=== PATIENT | female | born 1965 | race Caucasian/White ===

== ENCOUNTER 2016-09-14 10:39 | Emergency (ER) | payer BC ==
[~2016-09-14] VITALS: Ht 170.2 cm; Wt 92.1 kg
[2016-09-14 11:31] LABS: BASOPHIL % 0.3 % (0-2); PLATELET COUNT 217 x10^3mcL (130-400); RED CELL DISTRIBUTION WIDTH 12.8 % (11.5-14.5)
[2016-09-14 11:56] LABS: CALCIUM 9.6 mg/dL (8.5-10.1); CARBON DIOXIDE 30.8 mmol/L (21-32); CHLORIDE SERUM 102 mmol/L (98-107); GFR1 > 60 mL/min; GLUCOSE SERUM 109 mg/dL (74-106); SODIUM SERUM 140 mmol/L (136-145)
[2016-09-14 12:00] LABS: ALBUMIN 4.1 g/dL (3.4-5.0); ALKALINE PHOSPHATASE 93 U/L (46-116); ALT/SGPT 46 U/L (14-59); AMYLASE 46 U/L (25-115); AST/SGOT 16 U/L (15-37); BILIRUBIN TOTAL 0.2 mg/dL (0.20-1.00); LIPASE 145 IU/L (73-393); TOTAL PROTEIN, SERUM 7.1 g/dL (6.4-8.2)
[2016-09-14 12:04] LABS: UA SPECIFIC GRAVITY 1.025 (1.005-1.035); microscopic required? YES; urine erythrocyte NEGATIVE (NEGATIVE)
[2016-09-14 12:19] LABS: AMPHETAMINE QUAL UR POSITIVE (NEG <=1000)
[2016-09-14 14:46] VITALS: BP 152/87
== END 2016-09-14 14:47 | disposition home or self-care (01) ==
LOC: ED 10:39
PROVIDERS: Emergency Medicine
DX: R10.13 Epigastric pain (principal)
CPT/HCPCS: 80307; 83880; J2405; J3490; J7030

== ENCOUNTER 2017-01-30 14:37 | Emergency (ER) | payer BC ==
[2017-01-30 15:54] VITALS: BP 122/66
== END 2017-01-30 15:54 | disposition home or self-care (01) ==
LOC: ED 14:37
DX: G89.29 Other chronic pain (principal); M54.5 Low back pain; R10.9 Unspecified abdominal pain

== ENCOUNTER 2017-02-22 13:00 | Emergency (ER) | payer BC ==
[~2017-02-22] VITALS: Ht 162.6 cm; Wt 74.4 kg
[2017-02-22 17:02] LABS: CALCIUM 9.5 mg/dL (8.5-10.1); CARBON DIOXIDE 31.2 mmol/L (21-32); CHLORIDE SERUM 104 mmol/L (98-107); CREATININE SERUM 0.8 mg/dL (0.6-1.0); GFR1 > 60 mL/min; GLUCOSE SERUM 86 mg/dL (74-106); POTASSIUM SERUM 3.7 mmol/L (3.5-5.1); SODIUM SERUM 141 mmol/L (136-145)
[2017-02-22 17:06] LABS: ALBUMIN 3.9 g/dL (3.4-5.0); ALKALINE PHOSPHATASE 98 U/L (46-116); ALT/SGPT 55 U/L (14-59); AST/SGOT 27 U/L (15-37); BASOPHIL % 0.4 % (0-2); BILIRUBIN TOTAL 0.3 mg/dL (0.20-1.00); LIPASE 105 IU/L (73-393); PLATELET COUNT 220 x10^3mcL (130-400); TOTAL PROTEIN, SERUM 7.4 g/dL (6.4-8.2)
[2017-02-22 17:11] LABS: UA SPECIFIC GRAVITY 1.015 (1.005-1.035); microscopic required? YES; urine erythrocyte NEGATIVE (NEGATIVE)
[2017-02-22 18:02] VITALS: BP 118/69
== END 2017-02-22 18:02 | disposition home or self-care (01) ==
LOC: ED 13:00
PROVIDERS: Emergency Medicine
DX: R07.81 Pleurodynia (principal); G89.29 Other chronic pain; M54.9 Dorsalgia, unspecified; F32.9 Major depressive disorder, single episode, unspecified; Z87.11 Personal history of peptic ulcer disease; F11.90 Opioid use, unspecified, uncomplicated
CPT/HCPCS: 36415; J1885

== ENCOUNTER 2017-04-12 11:36 | Emergency (ER) | payer BC ==
[2017-04-12 16:00] VITALS: BP 132/84
== END 2017-04-12 16:00 | disposition home or self-care (01) ==
LOC: ED 11:36
DX: G89.29 Other chronic pain (principal); M54.5 Low back pain; F17.210 Nicotine dependence, cigarettes, uncomplicated; Z71.6 Tobacco abuse counseling
CPT/HCPCS: 99406; J1885

== ENCOUNTER 2017-06-12 15:20 | Emergency (ER) | payer BC ==
[~2017-06-12] VITALS: Ht 165.1 cm; Wt 76.7 kg
[2017-06-12 15:42] VITALS: Ht 165.1 cm; Wt 76.7 kg
[2017-06-12 21:05] VITALS: BP 105/77
== END 2017-06-12 21:05 | disposition home or self-care (01) ==
LOC: ED 15:20
DX: F41.1 Generalized anxiety disorder (principal)
CPT/HCPCS: 83880; J2060; Q0092

== ENCOUNTER 2018-12-04 11:35 | Emergency (ER) | payer BC ==
[~2018-12-04] VITALS: Ht 165.1 cm; Wt 74.4 kg
[2018-12-04 11:38] VITALS: BP 104/77; Ht 165.1 cm; Wt 74.4 kg
== END 2018-12-04 12:22 | disposition home or self-care (01) ==
LOC: ED 11:35
DX: G89.29 Other chronic pain (principal); M54.5 Low back pain; M51.36 Other intervertebral disc degeneration, lumbar region; F17.210 Nicotine dependence, cigarettes, uncomplicated; F41.9 Anxiety disorder, unspecified; Z90.49 Acquired absence of other specified parts of digestive tract; F32.9 Major depressive disorder, single episode, unspecified; Z76.0 Encounter for issue of repeat prescription; Z71.6 Tobacco abuse counseling

== ENCOUNTER 2019-08-05 12:42 | Emergency (ER) | payer BC, OTHER ==
[~2019-08-05] VITALS: Ht 165.1 cm; Wt 79.4 kg
[2019-08-05 12:59] VITALS: Ht 165.1 cm; Wt 79.4 kg
[2019-08-05 15:36] VITALS: BP 135/87
== END 2019-08-05 15:36 | disposition home or self-care (01) ==
LOC: ED 12:42
DX: M54.5 Low back pain (principal); G89.29 Other chronic pain; Z90.49 Acquired absence of other specified parts of digestive tract